=== PATIENT | male | born 1955 | race Caucasian/White ===

== ENCOUNTER 2018-04-02 10:30 | Outpatient (CLI) | payer BC ==
[~2018-04-02 10:30] MED LIST: Iopamidol 370 76% 100 ML VIAL ONE
[2018-04-02 11:01] LABS: Estimated GFR-MDRD - POC Greater than 90
--- NOTE | 2018-04-02 13:02 | CT ---
CT ABDOMEN WITH AND WITHOUT IV CONTRAST CT PELVIS WITH AND WITHOUT IV CONTRAST: Date: 04-02-18 History: Renal mass. Comparison: 10-17-14 FINDINGS: There is minimal dependent bibasilar atelectasis. Lung bases otherwise clear. The liver, spleen, pancreas, bilateral adrenal glands, kidneys, and incompletely distended urinary bl adder demonstrate a normal CT appearance. No renal or ureteral calculi are seen bilaterally and there is no evidence of a renal mass or abnorma l enhancement involving the kidneys bilaterally. There is minimal vascular calcification seen in the abdominal aorta. The appendix is visualized and normal in caliber. There has been no interval change compared to the prior exam. IMPRESSION: 1. No acute findings are seen in the abdomen or pelvis. 2. No evidence of a renal mass. No renal or ureteral calculi are seen bilaterally. POS: [id number]
== END 2018-04-02 10:31 | disposition home or self-care (01) ==
LOC: SCSCT 10:30
PROVIDERS: ATTEND Family Medicine
DX: N28.89 Other specified disorders of kidney and ureter (principal)
CPT/HCPCS: 74178; 82565

== ENCOUNTER 2021-06-25 07:00 | Outpatient (CLI) | payer BC | END 2021-06-25 07:01 | disposition home or self-care (01) | LOC: BICULT 07:00 | PROVIDERS: ATTEND Family Medicine | DX: K83.1 Obstruction of bile duct (principal); R93.2 Abnormal findings on diagnostic imaging of liver and biliary tract | CPT/HCPCS: 76700 ==

== ENCOUNTER 2023-01-06 07:25 | Outpatient (CLI) | payer BC | END 2023-01-06 07:26 | disposition home or self-care (01) | LOC: ULT 07:25 | PROVIDERS: ATTEND Internal Medicine | DX: K83.1 Obstruction of bile duct (principal) | CPT/HCPCS: 76705 ==

== ENCOUNTER 2023-04-10 09:12 | Outpatient (CLI) | payer BC | END 2023-04-10 09:13 | disposition home or self-care (01) | LOC: BICCT 09:12 | PROVIDERS: ATTEND Internal Medicine | DX: R19.09 Other intra-abdominal and pelvic swelling, mass and lump (principal) | CPT/HCPCS: 74177; 82565 ==

== ENCOUNTER 2024-01-06 12:50 | Outpatient (CLI) | payer BC | END 2024-01-06 12:51 | disposition home or self-care (01) | LOC: NM 12:50 | PROVIDERS: ATTEND Internal Medicine | DX: R10.11 Right upper quadrant pain (principal); K81.9 Cholecystitis, unspecified | CPT/HCPCS: 78226; A9537 ==

== ENCOUNTER 2025-03-15 09:27 | Outpatient (CLI) | payer MEDICARE, OTHER ==
[2025-03-15] MEDS ORDERED: Iopamidol 370 76% 100 ML VIAL ONE (14:17)
== END 2025-03-15 09:28 | disposition home or self-care (01) ==
LOC: CT 09:27
PROVIDERS: ATTEND Urology
DX: R31.29 Other microscopic hematuria (principal); N20.0 Calculus of kidney
CPT/HCPCS: 74178; Q9967